=== PATIENT | female | born 1955 | race Caucasian/White ===

== ENCOUNTER 2016-11-08 07:18 | Emergency (ER) | payer BC, OTHER ==
[2016-11-08 07:52] VITALS: BP 170/80
--- NOTE | 2016-11-08 08:11 | RAD ---
HISTORY: Left knee pain COMPARISONS: None VIEWS: 4, Frontal, lateral, axial, and oblique views of the left knee FINDINGS: BONE DENSITY: Normal. BONES: Along the lateral aspect of the distal femoral metadiaphysis, there is an area of cortical irregularity and periosteal reaction JOINTS: There is mild osteoarthritis of the left knee. ALIGNMENT: There is no dislocation. SOFT TISSUES: Unremarkable. OTHER FINDINGS: None. IMPRESSION: THERE IS FOCAL CORTICAL IRREGULARITY AND PERIOSTEAL REACTION ALONG THE LATERAL ASPECT OF THE DISTAL FEMUR. GIVEN THE HISTORY OF PAIN, THIS IS CONCERNING FOR AN AGGRESSIVE LESION, INCLUDING OSTEOGENIC NEOPLASM. RECOMMEND CONSIDERATION OF FURTHER EVALUATION WITH CONTRAST-ENHANCED MRI OF THE AREA OF CONCERN AND/OR CONSIDERATION OF TISSUE SAMPLING
--- NOTE | 2016-11-08 08:20 | UC ---
Tamanna Thomas Claudia, scribed for Leodan Marina MD on 11/08/16 at 0723 . Knee Pain HPI - HPI Summary HPI Summary: 61 year old female presents to the [facility] with left knee pain. Pt states that she has been having Sx for the past few weeks but it worsened last night when she got up from a siting position and fell. Pt notes pain is aggravated when she climbs stairs and when she stands from a sitting position. Pt states absent of pain when she is walking. She notes that she is always on her feet and on her knees at work, she also notes that she just returned from vacation and states she climbed stairs daily. Pt denies that the pain wakes her up at night. Pt denies any catching or grinding sensation. Pt also denies any associated Sx of fever, NVD, abd pain, SOB, CP. - History of Current Complaint Stated Complaint: KNEE PAIN Hx Obtained From: Patient Hx Last Menstrual Period: 10/2012 Onset/Duration: Gradual Onset, Lasting Days, Still Present Character: Aching Aggravating Factor(s): Stairs Able to Bear Weight: Yes - Allergies/Home Medications Allergies/Adverse Reactions: Allergies Allergy/AdvReac Type Severity Reaction Status Date / Time No Known Allergies Allergy Verified 07/28/13 09:52 Home Medications: Home Medications Misc Natural Products [Osteo Bi-Flex Joint Shiel] 11/08/16 [History] PMH/Surg Hx/FS Hx/Imm Hx Previously Healthy: Yes Endocrine History: Dyslipidemia - Surgical History Surgical History: Yes Surgery Procedure, Year, and Place: tonsils, hip as , [facility] - Family History Known Family History: Positive: Hypertension, Diabetes - Social History Occupation: Employed Full-time Lives: With Family Alcohol Use: Daily Alcohol Amount: 2-3 Substance Use Type: None Smoking Status (MU): Never Smoked Tobacco Review of Systems Constitutional: Negative - NO FEVER Skin: Negative Eyes: Negative ENT: Negative Respiratory: Negative - NO SOB Cardiovascular: Negative Gastrointestinal: Negative - NO ABD PAIN, NVD Genitourinary: Negative Motor: Negative Neurovascular: Negative Musculoskeletal: Other: - left knee pain Neurological: Negative Psychological: Negative All Other Systems Reviewed And Are Negative: Yes Physical Exam Triage Information Reviewed: Yes Appearance: Well-Appearing, No Pain Distress, Well-Nourished Vital Signs: Initial Vital Signs Temp 98.3 F 11/08/16 07:23 Pulse 78 11/08/16 07:23 Resp 18 11/08/16 07:23 BP 170/80 11/08/16 07:23 Pulse Ox 100 11/08/16 07:23 Vital Signs Reviewed: Yes Eyes: Positive: Conjunctiva Clear ENT Exam: Normal Neck exam: Normal Respiratory Exam: Normal Respiratory: Positive: Chest non-tender, Lungs clear, Normal breath sounds Cardiovascular: Positive: RRR, No Murmur, Pulses Normal Musculoskeletal: Positive: Other: - left knee: no swelling, no effusion , no tenderness, good ROM on flexion and extension . normal strength. stable ligaments , + Gillian test, with minimal pain on the lateral knee . Diagnostics - Radiology LEFT KNEE XRAY Xray Interpretation: Positive (See Comments) - THERE IS FOCAL CORTICAL IRREGULARITY AND PERIOSTEAL REACTION ALONG THE LATERAL ASPECT OF THE DISTAL FEMUR. GIVEN THE HISTORY OF PAIN, THIS IS CONCERNING FOR AN AGGRESSIVE LESION, INCLUDING OSTEOGENIC NEOPLASM. RECOMMEND CONSIDERATION OF FURTHER EVALUATION WITH CONTRAST-ENHANCED MRI OF THE AREA OF CONCERN AND/OR CONSIDERATION OF TISSUE SAMPLING Radiology Interpretation Completed By: Radiologist Knee Pain Course/Dx - Course Course Of Treatment: xray report : IMPRESSION: THERE IS FOCAL CORTICAL IRREGULARITY AND PERIOSTEAL REACTION ALONG THE LATERAL ASPECT OF. THE DISTAL FEMUR. GIVEN THE HISTORY OF PAIN, THIS IS CONCERNING FOR AN AGGRESSIVE LESION,. INCLUDING OSTEOGENIC NEOPLASM. RECOMMEND CONSIDERATION OF FURTHER EVALUATION WITH. CONTRAST-ENHANCED MRI OF THE AREA OF CONCERN AND/OR CONSIDERATION OF TISSUE SAMPLING. will make a referral to Ortho for eval - Differential Dx/Diagnosis Provider Diagnoses: left knee pain Discharge - Discharge Plan Condition: Stable Disposition: HOME Patient Education Materials: Knee Pain (ED), Meniscus Tear (ED) Referrals: Bairon Robles MD [Primary Care Provider] - Benitez Humphrey MD [Medical Doctor] - As Soon As Possible Additional Instructions: xray report : IMPRESSION: THERE IS FOCAL CORTICAL IRREGULARITY AND PERIOSTEAL REACTION ALONG THE LATERAL ASPECT OF THE DISTAL FEMUR. GIVEN THE HISTORY OF PAIN, THIS IS CONCERNING FOR AN AGGRESSIVE LESION, INCLUDING OSTEOGENIC NEOPLASM. RECOMMEND CONSIDERATION OF FURTHER EVALUATION WITH CONTRAST-ENHANCED MRI OF THE AREA OF CONCERN AND/OR CONSIDERATION OF TISSUE SAMPLING will make a referral to ortho for evaluation and treatment . The documentation as recorded by the Tamanna stuart Claudia accurately reflects the service I personally performed and the decisions made by me, Leodan Marina MD.
== END 2016-11-08 08:30 | disposition home or self-care (01) ==
LOC: UCEAST 07:18
DX: M25.561 Pain in right knee (principal); E78.5 Hyperlipidemia, unspecified
CPT/HCPCS: 99211; G0463